=== PATIENT | female | born 1940 | race Hispanic/Latino ===

== ENCOUNTER 2017-01-04 10:45 | Day surgery (SDC) | payer OTHER ==
[2017-01-04] MEDS ORDERED: PROLIA SUB-Q ONE (11:06)
[2017-01-04 11:13] VITALS: BP 120/51
[2017-01-04 11:58] LABS: Calcium 9.8 mg/dL (8.4-10.2)
== END 2017-01-04 12:46 | disposition home or self-care (01) ==
LOC: OPU 10:45
PROVIDERS: ATTEND Specialist
DX: M81.0 Age-related osteoporosis without current pathological fracture (principal)
CPT/HCPCS: 36415; 82310; 82565; 84520; 96372; J0897